=== PATIENT | female | born 1970 ===

== ENCOUNTER → 2016-10-25 | Outpatient (REF) | payer OTHER ==
[2016-10-25 14:16] LABS: FREE T4 1.02 NG/DL (0.76-1.46)
[2016-10-26 10:35] LABS: THYROID PEROXIDASE ANTIBODY < 28.0 U/ML (<60.0)
== END ==
LOC: M LABDRAW1 12:49
PROVIDERS: ATTEND Internal Medicine Endocrinology, Diabetes & Metabolism
DX: R94.6 Abnormal results of thyroid function studies (principal)

== ENCOUNTER → 2016-11-17 | Outpatient (CLI) | payer OTHER ==
--- NOTE | 2016-11-18 01:27 | REP ---
Clinical: Trauma. Technique: AP, lateral views of the right humerus. Findings: The osseous structures and joint spaces are intact and normal. There is no evidence for acute fracture or dislocation. Surrounding soft tissues are unremarkable. No subcutaneous emphysema or radiodense foreign body. Impression: Normal examination. No acute fracture or dislocation. Signed by Cedric Aguirre MD 11/18/2016 01:18 A
== END ==
LOC: M WUC 16:03
PROVIDERS: ATTEND Physician Assistant
DX: M79.621 Pain in right upper arm (principal)